=== PATIENT | male | born 1980 | race Two or more races ===

== ENCOUNTER 2018-02-04 11:42 | Emergency (ER) | payer MEDICAID ==
[~2018-02-04] VITALS: Ht 165.1 cm; Wt 122.9 kg
[2018-02-04 12:00] VITALS: BP 141/97; Ht 165.1 cm; Wt 122.9 kg
== END 2018-02-04 15:20 | disposition home or self-care (01) ==
LOC: ED 11:42
DX: J02.9 Acute pharyngitis, unspecified (principal); M79.1 Myalgia
CPT/HCPCS: J1100; J1885